=== PATIENT | female | born 1940 | race Caucasian/White ===

== ENCOUNTER 2016-06-02 10:49 | Outpatient (CLI) | payer MEDICARE, BC ==
[~2016-06-02] VITALS: Ht 165.1 cm; Wt 111.0 kg
[~2016-06-02 10:49] MED LIST: ASPIRIN E.C. 8181 MG PO; BYSTOLIC5 MG PO; DESYREL 100MG100 MG PO; FOLIC ACID 11 MG/TA1 PO; IRON325 M1 PO; METHOTREXA50 MG/2 ML IJ; NEXIUM 40MG40 MG PO; OCUVITE1 TA1 PO; PREDNISONE 5MG5 MG PO; PROAIR HFA0.09 MG/AC IH; RT ADVAIR 228 DISKUS IH; SINGULAIR 110 MG/TAB PO; SYNTHROID0.175 MG PO; TYLENOL 500MG500 MG PO; ULTRAM 50MG TAB50 MG PO; VITAMIN C500 MG PO; VITAMIN D2000 I1 PO; ZESTRIL 5MG5 MG PO
[2016-06-02] MEDS ORDERED: VITAMIN D32000 I1 PO (11:01)
[2016-06-02 11:25] VITALS: BP 132/72; PULSE 74; TEMP 97.6
[2016-06-02] MEDS ORDERED: TOPROL XL 50MG50 MG PO (12:28)
[2016-06-02] MEDS ORDERED: COZAAR 50MG50 MG/TAB PO (12:30)
[2016-06-02] MEDS ORDERED: NATURAL IRON65 MG PO (12:30)
[2016-06-02] MEDS ORDERED: MAGNESIUM200 MG PO (12:31)
[2016-06-02] MEDS ORDERED: METHOTREXATE50/2 IJ (12:33)
== END 2016-06-02 12:05 | disposition home or self-care (01) ==
LOC: EUO 10:49
DX: M81.0 Age-related osteoporosis without current pathological fracture (principal)
CPT/HCPCS: J3489

== ENCOUNTER → 2016-07-08 | Outpatient (REF) ==
[~2016-07-08] MED LIST changes: +COZAAR 50MG50 MG/TAB PO; +DOXYCYCLINE 10100 MG PO; +LOTRISONE 0.05%1 CRE TOP; +MAGNESIUM200 MG PO; +METHOTREXATE50/2 IJ; +MILLIPRED5 MG PO; +NATURAL IRON65 MG PO; +TOPROL XL 50MG50 MG PO; +VITAMIN D32000 I1 PO
== END ==
LOC: COL.CARD 13:38
DX: R00.8 Other abnormalities of heart beat (principal); R00.2 Palpitations; R53.83 Other fatigue

== ENCOUNTER → 2016-11-26 | Outpatient (CLI) | payer MEDICARE, BC | LOC: WCC 09:28 | DX: L97.829 Non-pressure chronic ulcer of other part of left lower leg with unspecified severity (principal); L97.819 Non-pressure chronic ulcer of other part of right lower leg with unspecified severity; I87.2 Venous insufficiency (chronic) (peripheral); M06.9 Rheumatoid arthritis, unspecified | CPT/HCPCS: 17717; 27517; A6207; A6212; G0463 ==

== ENCOUNTER → 2016-12-01 | Outpatient (CLI) | payer MEDICARE, BC | LOC: WCC 09:19 | DX: I87.2 Venous insufficiency (chronic) (peripheral) (principal); L97.829 Non-pressure chronic ulcer of other part of left lower leg with unspecified severity | CPT/HCPCS: 13919; 14933; 18867; 27516; A6207; A6209; Q4101 ==

== ENCOUNTER → 2016-12-08 | Outpatient (CLI) | payer MEDICARE, BC | LOC: WCC 08:26 | DX: I87.2 Venous insufficiency (chronic) (peripheral) (principal); L97.829 Non-pressure chronic ulcer of other part of left lower leg with unspecified severity | CPT/HCPCS: 13919; 17717; 27516; 50003; A6207; A6212; Q4172 ==

== ENCOUNTER → 2016-12-14 | Outpatient (CLI) | payer MEDICARE, BC | LOC: COL.VAS 12:47 | DX: I83.212 Varicose veins of right lower extremity with both ulcer of calf and inflammation (principal); L97.219 Non-pressure chronic ulcer of right calf with unspecified severity ==

== ENCOUNTER → 2016-12-15 | Outpatient (CLI) | payer MEDICARE, BC | LOC: WCC 08:34 | DX: I87.2 Venous insufficiency (chronic) (peripheral) (principal); L97.829 Non-pressure chronic ulcer of other part of left lower leg with unspecified severity | CPT/HCPCS: 13919; 18867; 27517; A6207; A6209; G0463 ==

== ENCOUNTER 2016-12-22 08:56 | Outpatient (CLI) | payer MEDICARE, BC ==
[2016-12-22] VITALS (12 sets, daily range): BP systolic 87–152; BP diastolic 51–85; PULSE 60–79; TEMP 98.5
[~2016-12-22] VITALS: Ht 167.7 cm; Wt 109.1 kg
[~2016-12-22 08:56] MED LIST changes: -DOXYCYCLINE 10100 MG PO; -LOTRISONE 0.05%1 CRE TOP; -MILLIPRED5 MG PO
[2016-12-22] MEDS ORDERED: LOTRISONE 0.05%1 CRE TOP (09:59)
[2016-12-22] MEDS ORDERED: MILLIPRED5 MG PO (10:08)
[2016-12-22] MEDS ORDERED: DOXYCYCLINE 10100 MG PO (16:16)
== END 2016-12-22 17:48 | disposition home or self-care (01) ==
LOC: COL.VAS 08:56
DX: I83.022 Varicose veins of left lower extremity with ulcer of calf (principal); I87.2 Venous insufficiency (chronic) (peripheral); I10 Essential (primary) hypertension; D64.9 Anemia, unspecified; J45.909 Unspecified asthma, uncomplicated; E78.1 Pure hyperglyceridemia; E03.9 Hypothyroidism, unspecified; E66.9 Obesity, unspecified; M81.0 Age-related osteoporosis without current pathological fracture; M06.9 Rheumatoid arthritis, unspecified; G47.00 Insomnia, unspecified; G47.33 Obstructive sleep apnea (adult) (pediatric)
CPT/HCPCS: C1894; J0171; J2250; J3010; J3370; J7040; J7050; J7120

== ENCOUNTER → 2017-01-06 | Outpatient (CLI) | payer MEDICARE, BC ==
[~2017-01-06] MED LIST changes: +DOXYCYCLINE 10100 MG PO; +LOTRISONE 0.05%1 CRE TOP; +MILLIPRED5 MG PO
== END ==
LOC: COL.VAS 12-30 09:00
DX: I83.022 Varicose veins of left lower extremity with ulcer of calf (principal); I87.2 Venous insufficiency (chronic) (peripheral)

== ENCOUNTER → 2017-01-06 | Outpatient (CLI) | payer MEDICARE, BC | LOC: WCC 09:05 | DX: L97.829 Non-pressure chronic ulcer of other part of left lower leg with unspecified severity (principal); I87.2 Venous insufficiency (chronic) (peripheral) | CPT/HCPCS: 13919; 16847; 17717; 27516; A6207; A6212; G0463 ==

== ENCOUNTER → 2017-01-12 | Outpatient (CLI) | payer MEDICARE, BC | LOC: WCC 09:54 | DX: I87.2 Venous insufficiency (chronic) (peripheral) (principal); L97.929 Non-pressure chronic ulcer of unspecified part of left lower leg with unspecified severity | CPT/HCPCS: 17717; 27513; 27516; 50003; A6207; A6212; A6456; Q4172 ==

== ENCOUNTER → 2017-01-19 | Outpatient (CLI) | payer MEDICARE, BC | LOC: WCC 09:00 | DX: I87.2 Venous insufficiency (chronic) (peripheral) (principal); L97.829 Non-pressure chronic ulcer of other part of left lower leg with unspecified severity | CPT/HCPCS: 18867; 27513; 27516; 50003; A6207; A6209; A6456; Q4172 ==

== ENCOUNTER → 2017-01-26 | Outpatient (CLI) | payer MEDICARE, BC | LOC: WCC 08:57 | DX: L97.829 Non-pressure chronic ulcer of other part of left lower leg with unspecified severity (principal); I87.2 Venous insufficiency (chronic) (peripheral); M06.9 Rheumatoid arthritis, unspecified | CPT/HCPCS: 17716; A6212; G0463 ==

== ENCOUNTER → 2017-01-27 | Outpatient (CLI) | payer MEDICARE, BC | LOC: WCC 09:39 | DX: I87.2 Venous insufficiency (chronic) (peripheral) (principal); L97.829 Non-pressure chronic ulcer of other part of left lower leg with unspecified severity | CPT/HCPCS: 14933; 18867; 27513; 27516; A6207; A6209; A6456; Q4101 ==

== ENCOUNTER → 2017-02-03 | Outpatient (CLI) | payer MEDICARE, BC | LOC: WCC 08:37 | DX: I87.2 Venous insufficiency (chronic) (peripheral) (principal); L97.829 Non-pressure chronic ulcer of other part of left lower leg with unspecified severity | CPT/HCPCS: 13919; 14933; 18867; 27516; A6207; A6209; Q4101 ==

== ENCOUNTER → 2017-02-10 | Outpatient (CLI) | payer MEDICARE, BC | LOC: WCC 02-07 09:36 | DX: I87.2 Venous insufficiency (chronic) (peripheral) (principal); L97.829 Non-pressure chronic ulcer of other part of left lower leg with unspecified severity | CPT/HCPCS: 13919; 14933; 17717; 27516; A6207; A6212; Q4101 ==

== ENCOUNTER → 2017-02-17 | Outpatient (CLI) | payer MEDICARE, BC | LOC: WCC 11:30 | DX: I87.2 Venous insufficiency (chronic) (peripheral) (principal); L97.819 Non-pressure chronic ulcer of other part of right lower leg with unspecified severity | CPT/HCPCS: 14933; 18867; 27513; A6209; A6456; Q4101 ==

== ENCOUNTER → 2017-02-24 | Outpatient (CLI) | payer MEDICARE, BC | LOC: WCC 09:16 | DX: I87.2 Venous insufficiency (chronic) (peripheral) (principal); L97.829 Non-pressure chronic ulcer of other part of left lower leg with unspecified severity | CPT/HCPCS: 13919; 17717; A6212 ==

== ENCOUNTER → 2017-03-02 | Outpatient (CLI) | payer MEDICARE, BC | LOC: WCC 03-01 10:07 | DX: L97.829 Non-pressure chronic ulcer of other part of left lower leg with unspecified severity (principal); I87.2 Venous insufficiency (chronic) (peripheral) | CPT/HCPCS: 17717; 27510; A6197; A6212; G0463 ==

== ENCOUNTER → 2017-06-08 | Outpatient (CLI) | payer MEDICARE, BC | LOC: ZCOL.LAB 15:27 | DX: I87.332 Chronic venous hypertension (idiopathic) with ulcer and inflammation of left lower extremity (principal) ==

== ENCOUNTER 2018-12-22 10:23 | Emergency (ER) | payer MEDICARE, BC ==
[~2018-12-22] VITALS: Ht 167.6 cm; Wt 116.1 kg
[2018-12-22 10:38] VITALS: TEMP 97.1
[2018-12-22 11:36] LABS: BASO # 0.1 (0.0-0.2); BASO % 0.8 % (0.0-2.0); EOS # 0.2 (0.0-0.7); EOS % 2.7 % (0-4.0); GRAN # 5.1 (1.4-6.5); GRAN % 65.3 % (42.2-75.2); HEMATOCRIT 37.6 % (37.0-47.0); HEMOGLOBIN 12.3 g/dl (12.5-16.0); LYMPH # 1.5 (1.2-3.4); LYMPH % 19.2 % (20.0-51.0); MEAN CELL VOLUME 100 fl (80.0-100.0); MEAN CORPUSCULAR HEMOGLOBIN 33 pg (27.0-31.0); MEAN CORPUSCULAR HGB CONC 33 g/dl (33.0-37.0); MEAN PLATELET VOLUME 8.5 fl (7.4-10.4); MONO # 0.9 (0.1-0.6); MONO % 11.5 % (1.7-9.3); PLATELET COUNT 356 K/mm3 (130-400); RED BLOOD COUNT 3.78 M/mm3 (4.10-5.30); REDCELL DISTRIBUTION WIDTH-CV 16.4 % (11.5-14.5)
[2018-12-22 11:41] LABS: INR 0.9 (0.8-3.0); PROTHROMBIN TIME 10.8 SECONDS (9.7-12.8)
[2018-12-22 11:47] LABS: ALBUMIN 4.1 gm/dL (3.5-5.0); BILIRUBIN,TOTAL 0.6 mg/dL (0.0-1.0); C-REACTIVE PROTEIN 1.6 mg/dL (0.0-0.9); CALCIUM 9.2 mg/dL (8.4-10.2); CREATININE, serum 0.88 (0.52-1.25); TOTAL PROTEIN 7.5 gm/dL (6.4-8.2)
[2018-12-22] MEDS ORDERED: NORCO 325 MG-51 TAB PO (14:54)
[2018-12-22 15:40] VITALS: BP 142/88; PULSE 81
== END 2018-12-22 15:45 | disposition home or self-care (01) ==
LOC: COL.ER 10:23
PROVIDERS: Emergency Medicine
DX: S80.12XA Contusion of left lower leg, initial encounter (principal); W10.9XXA Fall (on) (from) unspecified stairs and steps, initial encounter

== ENCOUNTER 2021-05-26 07:00 | Day surgery (SDC) | payer MEDICARE, BC ==
[2021-05-26] VITALS (11 sets, daily range): BP systolic 98–161; BP diastolic 45–84; PULSE 68–80; TEMP 98.1
[~2021-05-26] VITALS: Ht 167.6 cm; Wt 124.1 kg
[~2021-05-26 07:00] MED LIST changes: +NORCO 325 MG-51 TAB PO
[2021-05-26] MEDS ORDERED: IPRATROPIUM BROM3 M1 IH (07:27)
[2021-05-26] MEDS ORDERED: ASTELIN NASAL S34 ML NS (07:27)
[2021-05-26] MEDS ORDERED: DEPO MEDROL80 MG/ML IJ (07:28)
[2021-05-26] MEDS ORDERED: ZYRTEC 10MG10 MG PO (07:28)
[2021-05-26] MEDS ORDERED: BENADRYL25 M2 PO (07:29)
[2021-05-26] MEDS ORDERED: RT ADVAIR HFA 2312 G IH (07:29)
[2021-05-26] MEDS ORDERED: MULTIPLE VITAMI1 TA5 PO (07:30)
[2021-05-26] MEDS ORDERED: REMICADE V100 MG/VIA IV (07:43)
[2021-05-26] MEDS ORDERED: SALINE 45 ML45 ML NS (07:43)
[2021-05-26] MEDS ORDERED: KENALOG-4040 MG/VIAL IJ (07:44)
[2021-05-26] MEDS ORDERED: ASPIRIN E.C. 8181 MG PO (07:44)
[2021-05-26 08:19] LABS: HEMATOCRIT 40.2 % (37.0-47.0); HEMOGLOBIN 13.4 g/dl (12.5-16.0); MEAN CELL VOLUME 99 fl (80.0-100.0); MEAN CORPUSCULAR HEMOGLOBIN 33 pg (27-31); MEAN CORPUSCULAR HGB CONC 33 g/dl (33.0-37.0); MEAN PLATELET VOLUME 10.1 fl (7.4-10.4); PLATELET COUNT 218 K/mm3 (130-400); RED BLOOD COUNT 4.05 M/mm3 (4.10-5.30)
--- NOTE | 2021-05-26 08:41 | NUR ---
SEE MERGE FOR ALL MEDICATION ADMINISTRATION TIMES/DOSAGES AND INTRA/POST PROCEDURE SEDATION ASSESSMENT. PRE PROCEDURE ASSESSMENT COMPLETED IN [facility].
[2021-05-26 09:23] LABS: PROTHROMBIN TIME 10.5 SECONDS (9.7-12.8)
[2021-05-26 09:26] LABS: PARTIAL THROMBOPLASTIN TIME 25.8 SECONDS (26.0-37.0)
[2021-05-26 09:32] LABS: CALCIUM 9.2 mg/dL (8.4-10.2); CREATININE, serum 0.98 mg/dL (0.57-1.11); POTASSIUM 3.8 mmol/L (3.5-4.5)
--- NOTE | 2021-05-26 11:00 | NUR ---
Report from [facility]. Transferred from [facility] by bed. Right Tband with 11 cc air. scant blood around band, Good pulses and cap refill < 3 secs noted. VSS.
[2021-05-26] MEDS ORDERED: TIAZAC240 MG PO (13:12)
--- NOTE | 2021-05-26 14:40 | NUR ---
DC instructions reviewed with pt and family, all express understanding. Air was removed from TR band in 2 ml increments with no bleeding or complications. Rt radial puncture site dressed with foled 2x2 and bandaid. Pt assisted to side of bed and to dress. She is steady on feet. INT DC'd with catheter intact. She is assisted out to son's car by wheelchair.
== END 2021-05-26 14:10 | disposition home or self-care (01) ==
LOC: COL.CAR 07:00
PROVIDERS: Internal Medicine Cardiovascular Disease
DX: R94.39 Abnormal result of other cardiovascular function study (principal); R06.02 Shortness of breath; I48.0 Paroxysmal atrial fibrillation; I34.0 Nonrheumatic mitral (valve) insufficiency; I49.3 Ventricular premature depolarization; I10 Essential (primary) hypertension; J44.9 Chronic obstructive pulmonary disease, unspecified; K21.9 Gastro-esophageal reflux disease without esophagitis; E78.2 Mixed hyperlipidemia; E03.9 Hypothyroidism, unspecified; G47.33 Obstructive sleep apnea (adult) (pediatric); M79.7 Fibromyalgia; M19.90 Unspecified osteoarthritis, unspecified site; Z79.899 Other long term (current) drug therapy; Z79.890 Hormone replacement therapy; Z79.891 Long term (current) use of opiate analgesic; Z87.891 Personal history of nicotine dependence
CPT/HCPCS: C1769; J1644; J2250; J3010; Q9967

== ENCOUNTER → 2021-12-03 | Outpatient (CLI) | payer MEDICARE, BC ==
[~2021-12-03] MED LIST changes: +ASTELIN NASAL S34 ML NS; +BENADRYL25 M2 PO; +DEPO MEDROL80 MG/ML IJ; +IPRATROPIUM BROM3 M1 IH; +KENALOG-4040 MG/VIAL IJ; +MULTIPLE VITAMI1 TA5 PO; +REMICADE V100 MG/VIA IV; +RT ADVAIR HFA 2312 G IH; +SALINE 45 ML45 ML NS; +TIAZAC240 MG PO; +ZYRTEC 10MG10 MG PO
== END ==
LOC: COL.PUL 09:35
DX: I51.7 Cardiomegaly (principal); I34.0 Nonrheumatic mitral (valve) insufficiency; J45.909 Unspecified asthma, uncomplicated
CPT/HCPCS: J7674